=== PATIENT | male | born 1990 | race African-American/Black ===

== ENCOUNTER 2020-02-11 10:15 | Emergency (ER) | payer SELFPAY ==
[2020-02-11] MEDS ORDERED: Ketorolac Tromethamine 30 MG/ML VIAL ONE (10:28)
== END 2020-02-11 11:04 | disposition home or self-care (01) ==
LOC: ERS 10:15
DX: K08.89 Other specified disorders of teeth and supporting structures (principal)
CPT/HCPCS: 96372; 99282; J1885